=== PATIENT | male | born 1970 | race Caucasian/White ===

== ENCOUNTER 2021-11-05 22:19 | Emergency (ER) | payer MEDICAID, SELFPAY ==
--- NOTE | 2021-11-05 22:36 | CTR_ITS ---
PROCEDURE INFORMATION: Exam: CT Lumbar Spine Without Contrast Exam date and time: 11/05/2021 11:43 PM Age: 51 years old Clinical indication: Patient HX: C/O L sided weakness w radiculopathy; Additional info: L radicular pain TECHNIQUE: Imaging protocol: Computed tomography images of the lumbar spine without contrast. Radiation optimization: All CT scans at this facility use at least one of these dose optimization techniques: automated exposure control; mA and/or kV adjustment per patient size (includes targeted exams where dose is matched to clinical indication); or iterative reconstruction. COMPARISON: No relevant prior studies available. RADIATION DOSE METRICS: Total DLP (mGy-cm): 2361.09 FINDINGS: Vertebrae: Spinal alignment is normal. Vertebral body height is maintained. Facet joints are unremarkable. No acute fracture. Discs/Spinal canal/Neural foramina: There is disc space narrowing at L4-L5 and L5-S1. Minimal generalized disc bulges. No disc herniation is visible. Mild bilateral ligamentous hypertrophy at multiple levels. There is mild spinal stenosis at L2-L3, L3-L4 and L4-L5. Other bones/joints: The visible portion of the pelvis and sacrum is intact. Kidneys and ureters: There are left renal cysts, the largest of which is partially imaged. Soft tissues: Paraspinal soft tissues are unremarkable. CT/CT lumbar spine wo con* [id number] IMPRESSION: 1. No acute findings. 2. Mild multilevel degenerative spinal stenosis. COMMENTS: Consistent with the [employer]'s Incidental Findings Committee white paper (J Am Marilyn Radiol 2018): Any incidental renal lesion less than 1 cm or classified as too small to characterize, or any incidental cystic renal lesion characterized as simple-appearing, is likely benign. No follow-up imaging is recommended for these lesions per consensus recommendations based on imaging criteria.
--- NOTE | 2021-11-05 22:36 | CTR_ITS ---
PROCEDURE INFORMATION: Exam: CT Cervical Spine Without Contrast Exam date and time: 11/05/2021 11:38 PM Age: 51 years old Clinical indication: Patient HX: C/O L sided weakness/numbness; Additional info: L side paresthesia TECHNIQUE: Imaging protocol: Computed tomography images of the cervical spine without contrast. Radiation optimization: All CT scans at this facility use at least one of these dose optimization techniques: automated exposure control; mA and/or kV adjustment per patient size (includes targeted exams where dose is matched to clinical indication); or iterative reconstruction. COMPARISON: CT head wo con* [id number] 11/05/2021 11:35 PM RADIATION DOSE METRICS: Total DLP (mGy-cm): 727 FINDINGS: Vertebrae: No acute fracture. Normal alignment. C2-C3: No significant disc protrusion. No severe spinal canal stenosis. No significant neural foraminal narrowing. C3-C4: No significant disc protrusion. No severe spinal canal stenosis. No significant neural foraminal narrowing. C4-C5: No significant disc protrusion. No severe spinal canal stenosis. No significant neural foraminal narrowing. C5-C6: No significant disc protrusion. No severe spinal canal stenosis. No significant neural foraminal narrowing. C6-C7: No significant disc protrusion. No severe spinal canal stenosis. No significant neural foraminal narrowing. C7-T1: No significant disc protrusion. No severe spinal canal stenosis. No significant neural foraminal narrowing. Soft tissues: Unremarkable. Lungs: Lung apices are normal. CT/CT cervical spin wo con* [id number] IMPRESSION: No acute findings.
--- NOTE | 2021-11-05 22:36 | CTR_ITS ---
PROCEDURE INFORMATION: Exam: CT Head Without Contrast Exam date and time: 11/05/2021 11:35 PM Age: 51 years old Clinical indication: Weakness, extremity; Left; Patient HX: C/O L sided weakness; Additional info: Left sided paresthesia TECHNIQUE: Imaging protocol: Computed tomography of the head without contrast. Radiation optimization: All CT scans at this facility use at least one of these dose optimization techniques: automated exposure control; mA and/or kV adjustment per patient size (includes targeted exams where dose is matched to clinical indication); or iterative reconstruction. COMPARISON: No relevant prior studies available. RADIATION DOSE METRICS: Total DLP (mGy-cm): 1043.87 FINDINGS: Brain: Normal. No hemorrhage. Unremarkable white matter. No mass effect. Cerebral ventricles: No ventriculomegaly. Paranasal sinuses: Visualized sinuses are unremarkable. No fluid levels. Mastoid air cells: Visualized mastoid air cells are well aerated. Bones/joints: Unremarkable. No acute fracture. Soft tissues: Unremarkable. CT/CT head wo con* [id number] IMPRESSION: No acute intracranial abnormality.
--- NOTE | 2021-11-05 22:36 | CTR_ITS ---
PROCEDURE INFORMATION: Exam: CT Angiography Head With Contrast, Arteriography Exam date and time: 11/05/2021 11:49 PM Age: 51 years old Clinical indication: Patient HX: C/O L sided weakness/numbness; Additional info: Left side paresthesia TECHNIQUE: Imaging protocol: Computed tomography angiography of the head with contrast. Exam focused on the arteries. 3D rendering (Not supervised by radiologist): MIP and/or 3D reconstructed images were created by the technologist. Radiation optimization: All CT scans at this facility use at least one of these dose optimization techniques: automated exposure control; mA and/or kV adjustment per patient size (includes targeted exams where dose is matched to clinical indication); or iterative reconstruction. Contrast material: OMNI 350; Contrast volume: 95 ml; Contrast route: INTRAVENOUS (IV); COMPARISON: 1. CT head wo con* [id number] 11/05/2021 11:[address] cervical spin wo con* [id number] 11/05/2021 11:38 PM RADIATION DOSE METRICS: Total DLP (mGy-cm): 2155.53 FINDINGS: ANTERIOR CIRCULATION: Right internal carotid artery: Unremarkable. Intracranial segment is patent with no significant stenosis. No aneurysm. Right middle cerebral artery: Unremarkable. No occlusion or significant stenosis. No aneurysm. Right anterior cerebral artery: Unremarkable. No occlusion or significant stenosis. No aneurysm. Left internal carotid artery: Unremarkable. Intracranial segment is patent with no significant stenosis. No aneurysm. Left middle cerebral artery: Unremarkable. No occlusion or significant stenosis. No aneurysm. Left anterior cerebral artery: Unremarkable. No occlusion or significant stenosis. No aneurysm. POSTERIOR CIRCULATION: Right vertebral artery: Unremarkable. No occlusion or significant stenosis. No aneurysm. Left vertebral artery: Unremarkable. No occlusion or significant stenosis. No aneurysm. Basilar artery: Unremarkable. No occlusion or significant stenosis. No aneurysm. Right posterior cerebral artery: Unremarkable. No occlusion or significant stenosis. No aneurysm. Left posterior cerebral artery: Unremarkable. No occlusion or significant stenosis. No aneurysm. Brain: No definite mass, mass effect, or midline shift. Cerebral ventricles: No ventriculomegaly. Bones/joints: Unremarkable. No acute fracture. Soft tissues: Unremarkable. PROCEDURE INFORMATION: Exam: CT Angiography Neck With Contrast Exam date and time: 11/05/2021 11:49 PM Age: 51 years old Clinical indication: Patient HX: C/O L sided weakness/numbness; Additional info: Left side paresthesia TECHNIQUE: Imaging protocol: Computed tomography angiography of the neck with contrast. 3D rendering (Not supervised by radiologist): MIP and/or 3D reconstructed images were created by the technologist. Radiation optimization: All CT scans at this facility use at least one of these dose optimization techniques: automated exposure control; mA and/or kV adjustment per patient size (includes targeted exams where dose is matched to clinical indication); or iterative reconstruction. Contrast material: OMNI 350; Contrast volume: 95 ml; Contrast route: INTRAVENOUS (IV); COMPARISON: 1. CT head wo con* [id number] 11/05/2021 11:[address] cervical spin wo con* [id number] 11/05/2021 11:38 PM RADIATION DOSE METRICS: Total DLP (mGy-cm): 2155.53 FINDINGS: Right common carotid artery: No stenosis. No dissection or occlusion. Right internal carotid artery: Small volume plaque proximal right ICA. Mild stenosis. Right external carotid artery: No occlusion or stenosis of the origin. Left common carotid artery: No stenosis. No dissection or occlusion. Left internal carotid artery: Small volume plaque proximal left ICA. Minimal stenosis. Left external carotid artery: No occlusion or stenosis of the origin. Right vertebral artery: No stenosis. No dissection or occlusion. Left vertebral artery: No stenosis. No dissection or occlusion. Thyroid: Small heterogeneous left thyroid nodule measures about 1.5 cm greatest diameter. Soft tissues: Normal. No significant soft tissue swelling. Bones/joints: No acute fracture. CT/CT angio headneck* [id number] IMPRESSION: No large vessel stenosis or occlusion. IMPRESSION: Less than 50% carotid artery stenosis. COMMENTS: Consistent with the [employer]'s Incidental Findings Committee white paper (J Am Marilyn Radiol 2015): In patients aged 35 years and older with an incidental thyroid nodule equal to or greater than 1.[address], MRI or extrathyroidal US, further evaluation with dedicated thyroid US is recommended for patients with normal life expectancy and without comorbidities. For smaller nodules without suspicious features, no further evaluation or follow up is recommended. REFERENCES: NASCET CRITERIA. The degree of internal carotid artery stenosis is based on NASCET criteria. Normal is no stenosis. Mild is less than 50% stenosis. Moderate is 50-69% stenosis. Severe is 70% to 99% stenosis. Total occlusion is no detectable patent lumen.
[2021-11-05 22:38] VITALS: BP 172/117; PULSE 79; RESP 15; O2SAT 94; BMI 35.2
--- NOTE | 2021-11-05 22:38 | XRR_ITS ---
PROCEDURE INFORMATION: Exam: XR Chest Exam date and time: 11/06/2021 12:04 AM Age: 51 years old Clinical indication: Other: Weakness TECHNIQUE: Imaging protocol: XR of the chest. Views: 1 view. COMPARISON: CT cervical spin wo con* [id number] 11/05/2021 11:38 PM FINDINGS: Lungs: There is minimal ill-defined opacity in the lung bases bilaterally. No focal consolidation. Pleural spaces: There is no pleural effusion or pneumothorax. Heart/Mediastinum: Cardiomediastinal contours are unremarkable. Bones/joints: Bones are unremarkable. XR/XR chest 1V portable [id number] IMPRESSION: Minimal opacity in the lung bases. Probable subsegmental atelectasis.
--- NOTE | 2021-11-05 22:39 | ECG_ITS ---
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 Measurements Intervals [place] Rate: 73 P: 71 NH: 176 QRS: 23 QRSD: 103 T: 61 QT: 365 QTc: 404 Interpretive Statements SINUS RHYTHM No previous ECG available for comparison Electronically Signed On 11-06-2021 9:00:12 CDT by Lawson Pelaez M.D. [email or web address]
--- NOTE | 2021-11-05 22:42 | ED_ITS ---
HPI - Neuro Symptoms/Deficit General: Chief Complaint: Neuro Symptoms/Deficit Stated Complaint: can't feel left side Time Seen by Provider: 11/05/21 22:26 Source: patient History of Present Illness: 51-year-old male who 1.5 to 2 hours prior to arrival began to have a shooting pain up his back into the back of his head. He states that his left arm feels tingly and numb, as well as his left leg. He has some facial numbness as well. He denies significant headache currently. He denies neck pain. He does still have some back pain, and states that his belly hurts. He denies fever vomiting. He denies overt chest pain. He is a difficult historian, and will not answer some questions. Onset (ago): minute(s) (90-120) Location: left face, left arm and left leg History of same: No Severity: moderate Quality: numb and tingling Relieving factors: none Exacerbating factors: none Context: gradual onset On Anticoagulants: No Associated symptoms: Reports chest pain, nausea and weakness; Deny diaphoresis, fevers/chills, headache(s), short of breath or vomiting Review of Systems Const: Denies: fever(s) or diaphoresis Eyes: Denies: change in vision or blurry vision ENMT: Denies: throat pain Card: Reports: chest pain Resp: Denies: dyspnea, productive cough or non-productive cough GI: Reports: abdominal pain (diffuse) and nausea; Denies: vomiting Musc: Reports: back pain (lumbar); Denies: neck pain Neuro: Denies: headache(s) NIH stroke score NIHSS: Level Of Consciousness - 1a: 0 Level Of Consciousness Questions - 1b: Both Correct Level Of Consciousness Commands - 1c: Both Correct Best Gaze - 2: Normal Visual Clemons - 3: No Visual Loss Facial Palsy - 4: Normal Motor Arm Right - 5: No Drift Motor Arm Left - 5: No Drift Motor Leg Right - 6: No Drift Motor Leg Left - 6: No Drift Limb Ataxia - 7: Absent Sensory - 8: Mild To Moderate Loss Best Language - 9: No Aphasia Dysarthia - 10: Normal Extinction And Inattention - 11: 0 Score: Total Score: 1 Physical Exam Const: COMMON NORMALS: alert GENERAL APPEARANCE: anxious; not frail appearing NUTRITIONAL APPEARANCE: overweight OTHER: Incomplete cooperation HENMT: COMMON NORMALS: normocephalic, atraumatic and Normal external nose present HEAD & SCALP: normocephalic and atraumatic FACE & SINUS: normal facial exam NOSE: Normal external nose present and Normal nares present Eye: COMMON NORMALS: Equal, round and reactive pupils present and EOMs intact bilaterally VISUAL ACUITY: Yes acuity normal VISUAL CLEMONS: No peripheral vision loss PUPIL: Yes Equal, round and reactive pupils present Neck/C-Spine: COMMON NORMALS: full ROM CERVICAL SPINE: No Cervical spine tenderness Chest: COMMONS NORMALS: normal inspection of the chest Resp: COMMON NORMALS: normal respiratory effort, No use of accessory muscles and clear to auscultation bilaterally AUSCULTATION: clear to auscultation bilaterally Cardio: COMMON NORMALS: regular rate and regular rhythm RATE: regular rate RHYTHM: regular rhythm GI: COMMON NORMALS: Normal to inspection, nondistended, normoactive bowel sounds present Neuro: ADALID COMA SCALE: document GCS findings [place] coma scale eye opening: Spontaneous [place] coma scale verbal response: Orientated [place] coma scale motor response: Obey commands Adalid coma scale total score: 15 SENSORIUM/ORIENTATION: Yes alert CRANIAL NERVES: Yes CN normal except as noted COORDINATION/BALANCE: [id number]-vi-[id number] test normal and guna-rx-jwwn test normal SPEECH: speech normal GAIT: Yes Normal gait present SENSORY EXAM: Yes extremities (Subjective mild loss to upper and lower extremity) MOTOR EXAM: Pronator motor function not present and Tremors during motor activity present (Left side) resting tremor COORDINATION: rnwpqo-[id number] test normal and hdbr-yg-kbnw test normal Psych: COMMON NORMALS: mental status grossly normal ATTITUDE: Yes Withdrawn affect present and Yes uncooperative (At times) Course Vital Signs: Vital signs: Vital Signs Temperature 98 F 11/06/21 00:58 Pulse Rate 66 11/06/21 03:02 Respiratory Rate 20 H 11/06/21 02:06 Blood Pressure 131/81 11/06/21 03:02 Pulse Oximetry 97 11/06/21 03:02 MDM - Neuro Symptoms/Deficit Medical Decision Making Head CT is negative. CTA of the head and neck shows less than 50% carotid stenosis, and is otherwise normal. CT of the cervical spine, done as a potential cause of paresthesias to the left upper and lower extremity shows no significant spinal stenosis. Lumbar CT shows no significant spinal stenosis. CBC is normal. BMP is normal. Troponin was 6 and stayed 6 at 2 hours. EKG shows a normal sinus rhythm with a rate of 60 normal axis, intervals, and no ST changes.Chest x-ray shows minimal subsegmental atelectasis in the bases bilaterally. No hematuria. Ammonia level 44. No cause of paresthesia found. NIH is 1, for mild subjective decreased sensation over extremities. His blood pressure was quite high on presentation, and is now 131/81. His symptoms are improved he did seem to have increased pain with a straight leg raise test to the lumbar spine, but again there is no significant spinal stenosis by CT. Lab Data : 11/05/21 23:03 11/05/21 23:03 Radiology Impressions Cervical Spine CT 11/05/21 22:36 IMPRESSION: No acute findings. Head CT 11/05/21 22:36 IMPRESSION: No acute intracranial abnormality. Head/Neck CTA 11/05/21 22:36 IMPRESSION: No large vessel stenosis or occlusion. IMPRESSION: Less than 50% carotid artery stenosis. COMMENTS: Consistent with the [employer]'s Incidental Findings Committee white paper (J Am Marilyn Radiol 2015): In patients aged 35 years and older with an incidental thyroid nodule equal to or greater than 1.[address], MRI or extrathyroidal US, further evaluation with dedicated thyroid US is recommended for patients with normal life expectancy and without comorbidities. For smaller nodules without suspicious features, no further evaluation or follow up is recommended. REFERENCES: NASCET CRITERIA. The degree of internal carotid artery stenosis is based on NASCET criteria. Normal is no stenosis. Mild is less than 50% stenosis. Moderate is 50-69% stenosis. Severe is 70% to 99% stenosis. Total occlusion is no detectable patent lumen. Lumbar Spine CT 11/05/21 22:36 IMPRESSION: 1. No acute findings. 2. Mild multilevel degenerative spinal stenosis. COMMENTS: Consistent with the [employer]'s Incidental Findings Committee white paper (J Am Marilyn Radiol 2018): Any incidental renal lesion less than 1 cm or classified as too small to characterize, or any incidental cystic renal lesion characterized as simple-appearing, is likely benign. No follow-up imaging is recommended for these lesions per consensus recommendations based on imaging criteria. Chest X-Ray 11/05/21 22:38 IMPRESSION: Minimal opacity in the lung bases. Probable subsegmental atelectasis. Laboratory Results WBC 6.3 10^3/uL (4.0-10.0) 11/05/21 23:03 RBC 4.71 10^6/uL (4.1-5.3) 11/05/21 23:03 Hgb 14.9 g/dL (11.7-16.6) 11/05/21 23:03 Hct 42.7 % (42.0-52.0) 11/05/21 23:03 MCV 90.7 fl (80-94) 11/05/21 23:03 MCH 31.6 pg (28.0-34.0) 11/05/21 23:03 MCHC 34.9 g/dL (30.0-36.0) 11/05/21 23:03 RDW 13.0 % (12.1-15.1) 11/05/21 23:03 Plt Count 340 10^3/cmm (130-400) 11/05/21 23:03 MPV 9.9 fL (7.4-10.4) 11/05/21 23:03 Neut % (Auto) 65.2 % 11/05/21 23:03 Lymph % (Auto) 24.8 % 11/05/21 23:03 [place] % (Auto) 7.0 % 11/05/21 23:03 Eos % (Auto) 2.4 % 11/05/21 23:03 Baso % (Auto) 0.3 % 11/05/21 23:03 Neut # (Auto) 4.12 10^3/uL (1.8-7.7) 11/05/21 23:03 Lymph # (Auto) 1.6 10^3/uL (0.8-4.8) 11/05/21 23:03 [place] # (Auto) 0.4 10^3/uL (0.2-0.9) 11/05/21 23:03 Eos # (Auto) 0.2 10^3/uL (0.0-0.8) 11/05/21 23:03 Baso # (Auto) 0.0 10^3/uL (0.0-0.1) 11/05/21 23:03 Nucleated RBC % (auto) 0 % 11/05/21 23:03 Nucleated RBCs # 0.0 /100WBC 11/05/21 23:03 PT 12.60 SECONDS (12.1-14.9) 11/05/21 23:23 INR 0.91 (0.8-1.2) 11/05/21 23:23 APTT 26.2 SECONDS (23.9-36.7) 11/05/21 23:23 Sodium 138 mmol/L (136-145) 11/05/21 23:03 Potassium 3.9 mmol/L (3.5-5.1) 11/05/21 23:03 Chloride 103 mmol/L (98-107) 11/05/21 23:03 Carbon Dioxide 24 mmol/L (22-29) 11/05/21 23:03 Anion Gap 14.9 (5-19) 11/05/21 23:03 BUN 10 mg/dL (6-20) 11/05/21 23:03 Creatinine 0.7 mg/dL (0.7-1.2) 11/05/21 23:03 GFR Calculation 118.4 mL/min (90-130) 11/05/21 23:03 Glucose 108 mg/dL (65-115) 11/05/21 23:03 POC Glucose 107 mg/dL (70-110) 11/05/21 23:25 Calculated Osmolality 286 mOsm/kg (285-295) 11/05/21 23:03 Calcium 9.5 mg/dL (8.5-10.5) 11/05/21 23:03 Total Bilirubin 0.3 mg/dL (0.15-1.2) 11/05/21 23:03 AST 26 U/L (0-40) 11/05/21 23:03 ALT 35 U/L (0-41) 11/05/21 23:03 Alkaline Phosphatase 62 IU/L (40-130) 11/05/21 23:03 Ammonia 44 umol/L (16-60) 11/06/21 00:10 Troponin T Baseline 6 ng/L (0-15) 11/05/21 23:03 Troponin T 120 Minute 6.00 ng/L (0-15) 11/06/21 01:06 Delta Troponin T Not Reportable 11/06/21 01:06 Total Protein 7.6 g/dL (6.6-8.7) 11/05/21 23:03 Albumin 4.3 g/dL (3.5-5.2) 11/05/21 23:03 Globulin 3.3 g/dL (1.3-4.6) 11/05/21 23:03 Urine Color Yellow (Yellow) 11/05/21 23:41 Urine Appearance Clear (CLEAR) 11/05/21 23:41 Urine pH 8 (5-7) H 11/05/21 23:41 Ur Specific [place] 1.010 (1.005-1.030) 11/05/21 23:41 Urine Protein Neg (Negative) 11/05/21 23:41 Urine Glucose (UA) Norm (Normal) 11/05/21 23:41 Urine Ketones Negative (Negative) 11/05/21 23:41 Urine Blood Neg (Negative) 11/05/21 23:41 Urine Nitrate Negative (Negative) 11/05/21 23:41 Urine Bilirubin Neg (Negative) 11/05/21 23:41 Prot Sulfosalicylic Acd Negative (Negative) 11/05/21 23:41 Urine Urobilinogen Norm mg/dL (Negative) 11/05/21 23:41 Ur Leukocyte Esterase Negative (Negative) 11/05/21 23:41 Urine Opiates Screen Negative ng/mL (Negative) 11/05/21 23:41 Ur Barbiturates Screen Negative ng/mL (Negative) 11/05/21 23:41 Ur Phencyclidine Scrn Negative ng/mL (Negative) 11/05/21 23:41 Ur Amphetamines Screen Negative ng/mL (Negative) 11/05/21 23:41 U Benzodiazepines Scrn Negative ng/mL (Negative) 11/05/21 23:41 Urine Cocaine Screen Negative ng/mL (Negative) 11/05/21 23:41 U Marijuana (THC) Screen Negative ng/mL (Negative) 11/05/21 23:41 Ethyl Alcohol < 10 mg/dL (0-10) 11/05/21 23:03 Discharge Plan Discharge Patient Disposition: Home Clinical Impression: Back pain, Abdominal pain, Paresthesia Condition: Stable Prescriptions: New hydrocodone-acetaminophen 5-325 mg tablet 1 tab PO Q8H PRN (Reason: pain) Qty: 7 0RF Discharge Orders: Discharge ED (Routine); Ordered 11/06/21 Ordered By: Sadi Clancy Referrals: Rupa Perry FNP [Staff Physician] - 1-3 days Patient Instructions: Paresthesia (ED), Abdominal Pain (ED), Opioid Safety Activity Restrictions/Additional Instructions: Return for fever greater than 100, worsening pain despite treatment, vomiting liquids or medications, language problems, worsening weakness, worsening numbness, or any other concerning symptoms. Coding Level of Care Code ED Fund Raiser for Chg Fwd Exam Comprehensive
[2021-11-05 23:10] LABS: Basophils % 0.3 %; Eosinophils # 0.2 10^3/uL (0.0-0.8); Eosinophils % 2.4 %; Hematocrit 42.7 % (42.0-52.0); Hemoglobin 14.9 g/dL (11.7-16.6); Lymphocytes # 1.6 10^3/uL (0.8-4.8); Lymphocytes % 24.8 %; Mean Corpuscular HGB Conc 34.9 g/dL (30.0-36.0); Mean Corpuscular Hemoglobin 31.6 pg (28.0-34.0); Mean Corpuscular Volume 90.7 fl (80-94); Mean Platelet Volume 9.9 fL (7.4-10.4); Monocytes # 0.4 10^3/uL (0.2-0.9); Neutrophils # 4.12 10^3/uL (1.8-7.7); Neutrophils % 65.2 %; Nucleated Red Blood Cells % 0 %; Platelet Count 340 10^3/cmm (130-400); Red Blood Count 4.71 10^6/uL (4.1-5.3); White Blood Count 6.3 10^3/uL (4.0-10.0)
[2021-11-05] MEDS: ondansetron 2 mg/ML SDV 2 mL 4 MG IVP (23:12)
[2021-11-05 23:13] VITALS: RESP 18
[2021-11-05] MEDS: morphine 4 mg/mL SDV 1 mL IVP (23:13)
[2021-11-05 23:19] VITALS: BP 154/103; PULSE 75; RESP 18; O2SAT 96
[2021-11-05 23:28] LABS: Glucose Point of Care 107 mg/dL (70-110)
[2021-11-05 23:31] LABS: Alanine Aminotransferase 35 U/L (0-41); Albumin Level 4.3 g/dL (3.5-5.2); Alkaline Phosphatase 62 IU/L (40-130); Anion Gap 14.9 (5-19); Aspartate Amino Transferase 26 U/L (0-40); Blood Urea Nitrogen 10 mg/dL (6-20); Calcium 9.5 mg/dL (8.5-10.5); Carbon Dioxide 24 mmol/L (22-29); Chloride 103 mmol/L (98-107); Globulin 3.3 g/dL (1.3-4.6); Glomerular Filtration Rate 118.4 mL/min (90-130); Glucose 108 mg/dL (65-115); Osmolality Calculated 286 mOsm/kg (285-295); Potassium 3.9 mmol/L (3.5-5.1); Sodium 138 mmol/L (136-145); Total Bilirubin 0.3 mg/dL (0.15-1.2); Total Protein 7.6 g/dL (6.6-8.7)
[2021-11-05 23:32] LABS: Troponin(5th) Baseline 6 ng/L (0-15)
[2021-11-05] MEDS: iohexol 350 mg/mL 100 mL Btl IV (23:51)
[2021-11-05 23:52] LABS: Alcohol Level < 10 mg/dL (0-10)
[2021-11-05 23:55] LABS: INR 0.91 (0.8-1.2); Partial Thromboplastin Time 26.2 SECONDS (23.9-36.7)
[2021-11-06] MEDS: LORazepam 2 mg/mL INJ 1 mL 1 MG IVP (00:28)
--- NOTE | 2021-11-06 00:39 | ECG_ITS ---
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 Measurements Intervals [place] Rate: 58 P: 68 MT: 171 QRS: 50 QRSD: 101 T: 60 QT: 407 QTc: 402 Interpretive Statements SINUS BRADYCARDIA Compared to ECG 11/05/2021 22:47:39 Sinus rhythm no longer present Electronically Signed On 11-06-2021 9:04:16 CDT by Lawson Pelaez M.D. [id number]
[2021-11-06 00:54] LABS: Ammonia 44 umol/L (16-60)
[2021-11-06 00:58] VITALS: PULSE 58; RESP 18; TEMP 36.6; O2SAT 95
[2021-11-06 01:09] VITALS: BP 118/85
[2021-11-06 01:16] LABS: Add Urine Microscopic? NO; Charge for UA Resulting for Rev
[2021-11-06 01:28] LABS: Amphetamines Screen Urine Negative (Negative); Barbiturates Screen Urine Negative (Negative); Benzodiazepines Screen Urine Negative (Negative); Cocaine Screen Urine Negative (Negative); Opiate Screen Urine Negative (Negative); PCP Screen Urine Negative (Negative); THC Screen Urine Negative (Negative)
[2021-11-06 01:40] LABS: Bilirubin Urine Neg (Negative); Blood Urine Neg (Negative); Glucose Urine UA Norm (Normal); Ketones Urine Negative (Negative); Leukocyte Esterase Urine Negative (Negative); Nitrate Urine Negative (Negative); Protein Urine Neg (Negative); Sulfosalicylic Acid Urine Negative (Negative); Urine Appearance Clear (CLEAR); Urine Color Yellow (Yellow); Urobilinogen Urine Norm (Negative); pH Urine 8 (5-7)
[2021-11-06 02:06] VITALS: RESP 20
[2021-11-06] MEDS: morphine 4 mg/mL SDV 1 mL IVP (02:06)
[2021-11-06 03:02] VITALS: BP 131/81; PULSE 66; O2SAT 97
== END 2021-11-06 03:21 | disposition home or self-care (01) ==
PROVIDERS: Emergency Provider Emergency Medicine
DX: R20.2 Paresthesia of skin (principal); M54.9 Dorsalgia, unspecified; R10.9 Unspecified abdominal pain; R03.0 Elevated blood-pressure reading, without diagnosis of hypertension
CPT/HCPCS: 36416; 70450; 70496; 70498; 71045; 72125; 72131; 80053; 80306; 80307; 81003; 82140; 82962; 84484; 85025; 85610; 85730; 93005; 96374; 96375; 96376; 99284; J2060; J2270; J2405; Q9967

== ENCOUNTER → 2022-10-23 17:00 | Outpatient (BNVA) | payer MEDICAID, SELFPAY | PROVIDERS: Visit Provider Nurse Practitioner | DX: S89.90XA Unspecified injury of unspecified lower leg, initial encounter (principal); X58.XXXA Exposure to other specified factors, initial encounter; M25.462 Effusion, left knee | CPT/HCPCS: 73562 ==

== ENCOUNTER 2022-11-03 13:38 | Emergency (ER) | payer MEDICAID, SELFPAY ==
[2022-11-03 14:03] VITALS: BP 171/114; PULSE 118; RESP 16; TEMP 36.9; O2SAT 98; BMI 30.1
--- NOTE | 2022-11-03 14:08 | XRR_ITS ---
PROCEDURE INFORMATION: Exam: XR Right Hand Exam date and time: 11/03/2022 2:16 PM Age: 52 years old Clinical indication: Injury or trauma; Other: Crush injury; Crushing; Right; Ring finger TECHNIQUE: Imaging protocol: Radiologic exam of the right hand. Views: 1 or 2 views. COMPARISON: No relevant prior studies available. FINDINGS: Bones/joints: There is a comminuted fracture involving the distal lateral margin of the 4th distal phalangeal tuft. There is amputation of the tip of the 3rd finger. Alignment is normal. There is a minimally displaced fracture of the distal 1st phalangeal tuft laterally. Soft tissues: There is soft tissue laceration and small (1-2 mm) radiodense structures in the soft tissues just deep to the nail bed in the 4th finger. Possible foreign bodies or bone fragments. XR/XR hand RT 2V [id number] IMPRESSION: 1. Comminuted displaced fracture of the distal 4th phalangeal tuft and adjacent soft tissue laceration with 1-2 mm radiodense foreign bodies or bone fragments deep to the nail bed. 2. Minimally displaced fracture of the distal 1st phalangeal tuft. Chronicity is uncertain.
[2022-11-03] MEDS: tetanus-dipt-pertussis 0.5 mL SDV IM (14:17)
--- NOTE | 2022-11-03 15:03 | ED_ITS ---
Documented by User: TONY Das 11/03/22 15:28 HPI - Wound/Laceration General: Chief Complaint: Wound/Laceration Stated Complaint: finger injury Time Seen by Provider: 11/03/22 13:40 History of Present Illness: Patient is a [id number] 52-year-old man that presents to the emergency department the days after a 1300 pound horse stepped on the end of the fourth digit of the right hand. He sustained multiple avulsion type lacerations of the tip of the finger, and fractured his nailbed. For the last 2 to 3 days patient has been soaking the finger in iodine and hydrogen peroxide. There is a unknown object that is protruding from the distal aspect of the finger. It appears to be foreign but patient states it is attached, possibly his nailbed. Necrotic tissue present Patient does not recall when his last tetanus was Medical history includes hypertension. Associated symptoms: Denies chills, fever(s), nausea or vomiting Review of Systems General: Reports: 10 or more systems reviewed and unremarkable except in HPI and below Const: Denies: fever(s), chills, change in appetite, change in weight, fatigue or malaise Eyes: Denies: change in vision, eye discomfort, eye discharge or eye redness ENMT: Denies: throat pain, enlarged tonsils, odynophagia, hoarseness, ear or mastoid pain, ear discharge, change in hearing, tinnitus, nasal discharge, nasal congestion, post nasal drip or sinus pain Card: Denies: chest pain, palpitations, irregular heart rhythm, edema, dyspnea on exertion, orthopnea or leg pain with exertion Resp: Denies: dyspnea, productive cough, non-productive cough, wheezing, stridor or chest congestion GI: Denies: abdominal pain, nausea, vomiting, dysphagia, diarrhea, constipation, bloating, GI cramping or hematochezia : Denies: flank pain, dysuria, urinary frequency, urinary urgency, urinary hesitancy, oliguria or hematuria Musc: Denies: neck pain, back pain, extremity pain, joint pain, joint swelling, joint redness, joint warmth or muscle weakness Skin/Breast: Denies: rash, pruritus, erythema, photosensitivity or new lesions Neuro: Denies: headache(s), numbness in extremities, weakness in extremities, sensory changes, lack of coordination, difficulty walking, frequent falls, dizziness, confusion, Slurred speech present, difficulty communicating thoughts, seizure-like activity or involuntary movements Endo: Denies: polyuria, polydipsia or tired all the time Maged/Lymph: Denies: easy bruising or easy bleeding Physical Exam Const: COMMON NORMALS: no acute distress, patient oriented x3 and alert GENERAL APPEARANCE: cooperative ORIENTATION/CONSCIOUSNESS: Yes awake, Yes oriented to person, Yes oriented to place and Yes oriented to time Neck/C-Spine: COMMON NORMALS: full ROM GENERAL: Yes normal visual inspection Lymph: LYMPHATIC: no lymphadenopathy noted Chest: COMMONS NORMALS: normal inspection of the chest Breast/axilla inspection: Yes no chest deformity, asymmetry, normal contours, no nodules, masses, tenderness Resp: COMMON NORMALS: normal respiratory effort, No retractions, No use of accessory muscles and clear to auscultation bilaterally EFFORT & INSPECTION: Yes able to speak in complete sentences and Yes symmetric chest movement AUSCULTATION: clear to auscultation bilaterally Cardio: COMMON NORMALS: regular rate, regular rhythm and Peripheral pulses 2+ throughout RATE: regular rate RHYTHM: regular rhythm PERIPHERAL PULSES: Peripheral pulses 2+ throughout GI: COMMON NORMALS: Normal to inspection, nondistended, normoactive bowel soun ds present, Soft to palpation, non-tender and No hepatosplenomegaly present INSPECTION: Yes normal to inspection AUSCULTATION: Yes normoactive bowel sounds PALPATION: Yes Soft to palpation and Yes No hepatosplenomegaly present RECTAL EXAM: Yes deferred Extremity: COMMON NORMALS: negative for normal to inspection NARRATIVE EXTREMITY EXAM: Patient is right-hand dominant Has sustained a crush injury to the distal aspect of the fourth digit of the right hand He has a nailbed injury, open fracture, macerated and necrotic tissue. Is unclear if the patient has a foreign body or if this is his own soft tissue that is embedded in the wound. It is necrotic Patient is otherwise neurovascular intact. He has full flexion extension of the digit. Cap refill proximal of the wound is intact. GENERAL: Yes normal exam except as noted RIGHT UPPER EXTREMITY: Yes hand & digits Right hand and digits: Yes inspection (Macerated tissue to the distal aspect of the right fourth digit. ) Neuro: COMMON NORMALS: patient oriented x3 SENSORIUM/ORIENTATION: Yes alert, Yes oriented to person, Yes oriented to place and Yes oriented to time CRANIAL NERVES: Yes CN normal except as noted Psych: COMMON NORMALS: mental status grossly normal, Normal thought process present, cooperative, activity/motor behavior normal, denies homicidal ideation and denies suicidal ideation THOUGHT PROCESS: Normal thought process present Skin: COMMON NORMALS: no rashes or lesions noted, no wounds and turgor normal GENERAL SKIN EXAM: no rashes or lesions noted and turgor normal Course Vital Signs: Vital signs: Vital Signs Temperature 98.5 F 11/03/22 14:03 Pulse Rate 118 H 11/03/22 14:03 Respiratory Rate 16 11/03/22 14:03 Blood Pressure 171/114 11/03/22 14:03 Pulse Oximetry 98 11/03/22 14:03 Oxygen Delivery Me thod 11/03/22 14:03 MDM - Wound/Laceration Medical Decision Making Patient was evaluated in the emergency department 3 days after sustaining an injury to his dominant hand. At underwent XR imaging of the hand which reveals a comminuted tuft fracture of the fourth digit of the right hand. The tissue is macerated and necrotic. It has multiple lacerations. I did speak with Dr. Butterfield at 1500. This is not an injury that would be kept here. She is deferring to hand surgery. Patient is elected [facility] in [place]. Dr Cordero recommendation are keflex for coverage, xeroform to distal finger and a finger splint Patient will need to follow up this week with Dr Cordero. Contact information provided Lab Data Radiology Impressions Hand X-Ray 11/03/22 14:08 IMPRESSION: 1. Comminuted displaced fracture of the distal 4th phalangeal tuft and adjacent soft tissue laceration with 1-2 mm radiodense foreign bodies or bone fragments deep to the nail bed. 2. Minimally displaced fracture of the distal 1st phalangeal tuft. Chronicity is uncertain. Discharge Plan Discharge Patient Disposition: Home Clinical Impression: Avulsion of skin, Open fracture, Finger fracture Condition: Stable Prescriptions: New cephalexin 500 mg capsule 500 mg PO Q6H 7 Days Qty: 28 0RF No Action lisinopril 10 mg tablet 10 mg PO DAILY meloxicam 15 mg tablet 15 mg PO DAILY Discharge Orders: Discharge ED (Routine); Ordered 11/03/22 Or[facility] By[facility] Referrals: Ottoniel Cordero [Other] - 1-3 days (Call the office Saturday to set up an appointment.) Ivanna Vargas EQUINE SCIENCE INSTRUCTOR [Primary Care Provider] - Discharge Diet: Advance as tolerated Discharge Activity: Resume usual activity Patient Instructions: Cephalexin (By mouth) (Bio-Cef, Keflex), Diphtheria/Tetanus/Acellular Pertussis/Polio Vaccine (By injection), Laceration (ED), Finger Fracture (ED), Pain Management Activity Restrictions/Additional Instructions: Keep the dressing and splint that was applied in the emergency department intact. Do not soak the tissue in any liquid Take the antibiotics as prescribed Remain nonweightbearing with the right hand Means no lifting pushing or pulling objects Coding Level of Care Code ED Personnel Technician for Chg Fwd Documented by User: Erich Davalos DO 11/03/22 16:35 HPI - Wound/Laceration General: Chief Complaint: Wound/Laceration Stated Complaint: finger injury Time Seen by Provider: 11/03/22 13:40 Course Vital Signs: Vital signs: Vital Signs Temperature 98.5 F 11/03/22 14:03 Pulse Rate 118 H 11/03/22 14:03 Respiratory Rate 16 11/03/22 14:03 Blood Pressure 171/114 11/03/22 14:03 Pulse Oximetry 98 11/03/22 14:03 Oxygen Delivery Me thod 11/03/22 14:03 MDM - Wound/Laceration Medical Decision Making Patient was evaluated in the emergency department 3 days after sustaining an injury to his dominant hand. At underwent XR imaging of the hand which reveals a comminuted tuft fracture of the fourth digit of the right hand. The tissue is macerated and necrotic. It has multiple lacerations. I did speak with Dr. Butterfield at 1500. This is not an injury that would be kept here. She is deferring to hand surgery. Patient is elected [facility] in [place]. Dr Cordero recommendation are keflex for coverage, xeroform to distal finger and a finger splint Patient will need to follow up this week with Dr Cordero. Contact information provided Chart reviewed and patient discussed with midlevel. Agree with assessment and plan. Medical Records I reviewed the patient's medical records. Lab Data I reviewed the patient's lab results. Radiology Impressions Hand X-Ray 11/03/22 14:08 IMPRESSION: 1. Comminuted displaced fracture of the distal 4th phalangeal tuft and adjacent soft tissue laceration with 1-2 mm radiodense foreign bodies or bone fragments deep to the nail bed. 2. Minimally displaced fracture of the distal 1st phalangeal tuft. Chronicity is uncertain. Discharge Plan Discharge Patient Disposition: Home Clinical Impression: Avulsion of skin, Open fracture, Finger fracture Condition: Stable Prescriptions: New cephalexin 500 mg capsule 500 mg PO Q6H 7 Days Qty: 28 0RF No Action lisinopril 10 mg tablet 10 mg PO DAILY meloxicam 15 mg tablet 15 mg PO DAILY Discharge Orders: Discharge ED (Routine); Ordered 11/03/22 Ordered By: Rosalie Amaya Referrals: Ottoniel Cordero [Other] - 1-3 days (Call the office Saturday to set up an appointment.) Ivanna Vargas NP [Primary Care Provider] - Discharge Diet: Advance as tolerated Discharge Activity: Resume usual activity Patient Instructions: Cephalexin (By mouth) (Bio-Cef, Keflex), Diphtheria/Tetanus/Acellular Pertussis/Polio Vaccine (By injection), Laceration (ED), Finger Fracture (ED), Pain Management Activity Restrictions/Additional Instructions: Keep the dressing and splint that was applied in the emergency department intact. Do not soak the tissue in any liquid Take the antibiotics as prescribed Remain nonweightbearing with the right hand Means no lifting pushing or pulling objects Coding Level of Care Code ED Personnel Technician for [facility] [place]
[2022-11-03] MEDS: cephALEXin 500 mg Capsule PO (15:28)
== END 2022-11-03 15:53 | disposition home or self-care (01) ==
PROVIDERS: Emergency Provider Nurse Practitioner; PCP Nurse Practitioner
DX: S62.634B Displaced fracture of distal phalanx of right ring finger, initial encounter for open fracture (principal); W55.12XA Struck by horse, initial encounter
CPT/HCPCS: 73120; 90471; 90715; 99283; A6222

== ENCOUNTER → 2022-12-25 14:41 | Outpatient (BNVA) | payer MEDICAID, SELFPAY | PROVIDERS: PCP Family Medicine; Visit Provider Family Medicine | DX: M25.511 Pain in right shoulder (principal) | CPT/HCPCS: 73030 ==

== ENCOUNTER → 2023-05-14 12:15 | Outpatient (BNVA) | payer MEDICAID, SELFPAY | PROVIDERS: PCP Family Medicine; Visit Provider Family Medicine | DX: J32.9 Chronic sinusitis, unspecified (principal); I10 Essential (primary) hypertension; K40.30 Unilateral inguinal hernia, with obstruction, without gangrene, not specified as recurrent; M25.511 Pain in right shoulder; G89.29 Other chronic pain; M19.91 Primary osteoarthritis, unspecified site; J30.2 Other seasonal allergic rhinitis; J32.0 Chronic maxillary sinusitis; L98.9 Disorder of the skin and subcutaneous tissue, unspecified | CPT/HCPCS: 80053; 80061 ==

== ENCOUNTER → 2023-06-03 13:41 | Outpatient (BNVA) | payer MEDICAID, SELFPAY | PROVIDERS: PCP Family Medicine; Visit Provider Family Medicine | DX: L98.9 Disorder of the skin and subcutaneous tissue, unspecified (principal) | CPT/HCPCS: 88304 ==

== ENCOUNTER → 2023-07-25 10:35 | Outpatient (BNVA) | payer MEDICAID, SELFPAY | PROVIDERS: PCP Family Medicine; Visit Provider Family Medicine | DX: Z72.51 High risk heterosexual behavior (principal); Z11.3 Encounter for screening for infections with a predominantly sexual mode of transmission | CPT/HCPCS: 87491; 87591; 87806 ==

== ENCOUNTER → 2023-08-21 13:26 | Outpatient (BNVA) | payer MEDICAID, SELFPAY | PROVIDERS: PCP Family Medicine; Visit Provider Specialist | DX: M12.811 Other specific arthropathies, not elsewhere classified, right shoulder | CPT/HCPCS: 73030 ==

== ENCOUNTER 2023-09-23 09:27 | Outpatient (CLI) | payer MEDICAID, SELFPAY ==
--- NOTE | 2023-09-23 09:30 | MR_ITS ---
WS: [id number] MRI RIGHT SHOULDER NONCONTRAST TECHNIQUE: Sagittal T2, coronal T1, T2 and proton density imaging. Axial gradient PDE imaging. CLINICAL INFORMATION: right shoulder pain COMPARISON: None. FINDINGS: Advanced degenerative arthritis AC joint with synovial thickening and subchondral cystic change. Asso ciated fluid at the AC joint with loss of the subacromial space. Subacromial spurring. This is advanc ed for a patient this age. Chronic thinning of the supraspinatus with a chronic high-grade tear. Small amount of residual intact supraspinatus fibers distally. Chronic high-grade tear of the infraspinatus with chronic thinning. C hronic atrophy of the supra and infraspinatus muscle bellies. Teres minor appears intact. Chronic tear of the subscapularis tendon distally with chronic thinning. Medial dislocation of the biceps tendon from the bicipital groove with tendinopathy. Intra-articular biceps tendon appears grossly intact. Degenerative fraying of the glenoid labrum. Advanced degenerative arthritis of the glenohumeral artic ulation. Small joint effusion. IMPRESSION: 1. Advanced degenerative arthritis AC joint with fluid and edema. Near complete loss of the subacrom ial space advanced for patient this age. 2. Chronic high-grade partial tears with chronic thinning of the supra and infraspinatus tendons dis tally with a small amount of residual intact fibers. 3. Chronic tear with chronic thinning of the subscapularis tendon. Medial dislocation of the biceps tendon from the bicipital groove. 4. Advanced degenerative arthritis of the glenohumeral articulation with degenerative fraying of the glenoid labrum. 5. Tiny joint effusion.
== END 2023-09-23 09:28 | disposition home or self-care (01) ==
LOC: RAD 09:27
PROVIDERS: PCP Family Medicine; Visit Provider Specialist
DX: M25.511 Pain in right shoulder (principal); G89.29 Other chronic pain
CPT/HCPCS: 73221

== ENCOUNTER → 2024-05-11 13:41 | Outpatient (BNVA) | payer MEDICAID, SELFPAY | PROVIDERS: PCP Family Medicine; Visit Provider Family Medicine | DX: M12.811 Other specific arthropathies, not elsewhere classified, right shoulder (principal); I10 Essential (primary) hypertension; G89.29 Other chronic pain; M19.91 Primary osteoarthritis, unspecified site; Z11.3 Encounter for screening for infections with a predominantly sexual mode of transmission | CPT/HCPCS: 80053; 80061; 85025 ==

== ENCOUNTER → 2024-08-14 09:03 | Outpatient (BNVA) | payer MEDICAID, SELFPAY | PROVIDERS: PCP Family Medicine; Visit Provider Specialist | DX: M75.101 Unspecified rotator cuff tear or rupture of right shoulder, not specified as traumatic (principal); M19.011 Primary osteoarthritis, right shoulder; Z71.89 Other specified counseling | CPT/HCPCS: 73030 ==

== ENCOUNTER 2024-10-17 04:15 | Emergency (ER) | payer MEDICAID, SELFPAY ==
[2024-10-17 04:37] VITALS: BP 162/100; PULSE 72; RESP 20; TEMP 36.6; O2SAT 95
[2024-10-17] MEDS: fluorescein 1 mg Strip EYE-BOTH (04:50)
[2024-10-17] MEDS: tetracaine 0.5% Op Soln 4 mL Btl 1 DROP EYE-BOTH (04:50)
--- NOTE | 2024-10-17 04:52 | ED_ITS ---
HPI - Eye Problem General: Chief complaint: Eye Problems Stated complaint: dirt/ something in eyes Time Seen by Provider: 10/17/24 04:44 History of Present Illness: Patient presents to the ER with thinking he has something in both eyes. Patient was up underneath his truck last night working when he moved some wires and big water dust and dirt come down in his face. He said immediately thought he had something in his develop his left eye started bothering him now both eyes are bothering him. He has been washing the mouth all night long. Lubricating drops in but no relief. Related Data Previous Rx's ?Medication ?Instructions ?Recorded fluticasone propionate 50 1 spray intranasal BID #16 g devendra 04/09/24 mcg/actuation nasal spray,suspension (Flonase Allergy Relief) amlodipine 5 mg tablet (Norvasc) 5 mg PO .qnightly #90 tabs 05/11/24 celecoxib 100 mg capsule (Celebrex) 100 mg PO BID #180 caps 05/11/24 hydrochlorothiazide 25 mg tablet 25 mg PO QAM #90 tabs 05/11/24 lisinopril 40 mg tablet 40 mg PO DAILY #90 tabs 04/14 bupropion HCl 300 mg 24 hr tablet, 300 mg PO QAM #60 t abs 09/04/24 extended release (Wellbutrin XL) levocetirizine 5 mg tablet (Xyzal) 5 mg PO DAILY #30 t abs 09/04/24 Allergies Allergy/AdvReac Type Severity Reaction Status Date / Time No Known Allergies Allergy Verified 09/04/24 08:56 Review of Systems General: Reports: 10 or more systems reviewed and unremarkable except in HPI and below PFSH ED PFSH: Medical History Moderate major depression Severe alcohol use disorder Rotator cuff tear arthropathy of right shoulder Arthritis of right acromioclavicular joint Osteoarthritis Hypertension Surgical History History of left knee surgery History of hernia repair History of vasectomy Family History Father Cancer prostate Grandmother Cancer Maternal-breast Other Hypertension Denies family history of Diabetes CAD (coronary artery disease) Clotting disorder Dementia Hyperlipidemia Psychiatric illness Chronic kidney disease (CKD) Anesthesia complication Bleeding disorder Lung disease Stroke Social History Smoking and tobacco/nicotine status: current every day tobacco/nicotine user smokeless tobacco Smokeless tobacco user: chewing tobacco Alcohol intake: former Substance/Drug Use: never Lives independently: Yes Marital status: Current occupational status: employed Current occupation: Construction Special marion needs: No Agree to transfusion: Yes Physical Exam Const: COMMON NORMALS: no acute distress, average body habitus, patient oriented x3, no limitations, healthy appearing, alert and well nourished HENMT: COMMON NORMALS: normocephalic, atraumatic, hearing grossly normal bilaterally, external ears normal, Normal external nose present, moist oral mucous membranes and oropharynx normal HEAD & SCALP: normocephalic and atraumatic NOSE: Normal external nose present EXTERNAL EAR: Yes external ears normal Eye: COMMON NORMALS: Equal, round and reactive pupils present, EOMs intact bilaterally, negative for conjunctivae normal (Bilateral conjunctivitis) and no scleral icterus CONJUNCTIVA: No conjunctivae normal (Bilateral conjun ctivitis) PUPIL: Yes Equal, round and reactive pupils present OTHER: Each eye was anesthetized with tetracaine drops, fluorescein dye was applied, each eye was examined under black light as well as both eyelids inverted. No obvious foreign body or defects was noted. Neck/C-Spine: COMMON NORMALS: no JVD Chest: COMMONS NORMALS: normal inspection of the chest and normal palpation of entire chest wall Resp: COMMON NORMALS: normal respiratory effort, No retractions, No use of accessory muscles and clear to auscultation bilaterally AUSCULTATION: clear to auscultation bilaterally Cardio: COMMON NORMALS: no JVD, regular rate, regular rhythm, S1 normal heart sound present, S2 normal heart sound present, No gallops present (Cardio), No clicks present (Cardio), No murmurs present (Cardio) and No rub (Cardio) RATE: regular rate RHYTHM: regular rhythm HEART SOUNDS: S1 normal heart sound present and S2 normal heart sound present Neuro: COMMON NORMALS: patient oriented x3 SENSORIUM/ORIENTATION: Yes alert Course Vital Signs: Vital signs: Vital Signs Temperature 98 F 10/17/24 04:37 Pulse Rate 72 10/17/24 04:37 Respiratory Rate 20 H 10/17/24 04:37 Blood Pressure 162/100 10/17/24 04:37 Pulse Oximetry 95 10/17/24 04:37 MDM - Eye Problem Medical Decision Making Each eye was anesthetized with tetracaine drops, fluorescein dye was applied, each eye was examined under black light as well as both eyelids inverted. No obvious foreign body or defects was noted. Patient be discharged home. Medical Records I reviewed the patient's medical records. Lab Data I reviewed the patient's lab results. No radiology studies performed this visit Discharge Plan Discharge Patient Disposition: Home Clinical Impression: Conjunctivitis Qualifiers: Conjunctivitis type: acute Acute conjunctivitis type: unspecified Laterality: bilateral Qualified Code(s): H10.33 - Unspecified acute conjunctivitis, bilateral Condition: Stable Prescriptions: No Action fluticasone propionate [Flonase Allergy Relief] 50 mcg/actuation spray,suspension 1 spray intranasal BID Qty: 16 0RF Rx Instructions: administer into each nostril bupropion HCl [Wellbutrin XL] 300 mg tablet extended release 24 hr 300 mg PO QAM Qty: 60 1RF levocetirizine [Xyzal] 5 mg tablet 5 mg PO DAILY Qty: 30 1RF celecoxib [Celebrex] 100 mg capsule 100 mg PO BID Qty: 180 1RF lisinopril 40 mg tablet 40 mg PO DAILY Qty: 90 1RF hydrochlorothiazide 25 mg tablet 25 mg PO QAM Qty: 90 1RF amlodipine [Norvasc] 5 mg tablet 5 mg PO .qnightly Qty: 90 1RF Discharge Orders: Discharge ED (Routine); Ordered 10/17/24 Ordered By: Ernesto Layne Referrals: Wilfredo Preston MD [Primary Care Provider] - 1 week Patient Instructions: Conjunctivitis (ED) Activity Restrictions/Additional Instructions: Your evaluation in the ER did not show any foreign body or corneal defect. Your eyes may just be irritated and this need time to resolve. There is no treatment other than time. If your pain does not get any better in the next 2 to 3 days or gets worse at any time. Please follow-up with your housekeeper manager for further evaluation and treatment. Thank you for choosing [facility] for your healthcare needs today. Please realize that you were seen in the emergency department and that we are providing you with an emergency medical screening exam and this may not be a complete and all exclusive of all testing and/or medical workup we may need to determine your element or severity of your illness. It is very important that you follow-up as instructed with your primary care provider or specialist for the additional evaluation and to discuss your medical treatment plan. You may return to the emergency department should you have concerns or if your condition changes or worsens in any way. Print Language: Tunisian Coding Level of Care Code ED Photography Professor for Essence Marin
[2024-10-17 05:06] VITALS: BP 143/79; PULSE 64; RESP 18; O2SAT 93
== END 2024-10-17 05:07 | disposition home or self-care (01) ==
PROVIDERS: Emergency Provider Emergency Medicine; PCP Family Medicine
DX: H10.33 Unspecified acute conjunctivitis, bilateral (principal); F17.220 Nicotine dependence, chewing tobacco, uncomplicated; I10 Essential (primary) hypertension
CPT/HCPCS: 99283

== ENCOUNTER 2025-05-11 05:52 | Emergency (ER) | payer BC, MEDICAID, SELFPAY ==
--- OUTSIDE RECORDS SUMMARY | 2016-07-19 10:20 | XMS_ITS | Continuity of Care Document ---
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 Phone Unavailable Unavailable Unavailable Allergies, Adverse Reactions, Alerts Substance Reaction Status Criticality No Known Allergies Active No Inform ation Medications Medication Instructions Dosage Effective Dates (start - stop) Status Comments LISINOPRIL (unknown strength) take 1 tablet by oral route every day Not Available - Active Procedures Procedure Date Comprehensive eye exam, new patient Determination of refractive state Advance Directives Directive Yes / No Effective Date File Name Resuscitation Not Answered N/A N/A Life Support Not Answered N/A N/A Intubation Not Answered N/A N/A Antibiotics Not Answered N/A N/A IV Fluid Support Not Answered N/A N/A Tube Feed Not Answered N/A N/A Other Directive N/A N/A WARNING:The information contained in this section is historical and is provided for information only and does not constitute a legal document or any assurance that the information is still accurate. Please verify the information with the stein of the legal document before using it for clinical purposes. Encounters Encounter Description Practice Location Reason(s) For Visit Diagnoses Date Provider Providers Copied on Encounter [facility], [address] [address], [place], [place], [id number], tel:[phone] Karlee Patient is here for a complete exam. (chief complaint) Disorder of refraction H52.7Presbyo chintan H52.4Encount er for examination of eyes and vision with abnormal findings Z01.01Pteryg ium of right eye [phone] No Information Family History Family Member Type Diagnosis Age At Onset Problem (finding) Family history of hyper tension Payers Payer name Insurance type Covered republican ID Authoriza tion(s) No Information Social History Type Description Quantity Date Captured Comments Alcohol Use Details No Caffeine Use Details coffee Tobacco Use Status Chews tobacco Smoking Status Smoker, current stat us unknown Non-Smoking Tobacco Use Details Chewing: No Details Available Chewing: No Details Available Sex Male Chief Complaint And Reason For Visit From encounter dated '07/19/2016 15:20'. Patient is here for a complete exam. (chief complaint) Reason For Referral Reason For Referral No Information Plan Of Treatment Date Type Action Status Patient Education Presbyopia: Care Instru ctions completed History Of Present Illness Encounter Date Complaint History Of Prese nt Illness No Information Functional Status Date Functional Assessmen t No Information Instructions Date Instruction Additional Infor mation - New glasses prescr iption was given today. 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 Recommend using artificial tears daily as needed, as well as sunglasses while outdoors. Related to Pterygium of right eye H11.001 - Explained in dar castillo diagnosis with patient. New glasses prescription given today. 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
[2025-05-11 05:56] VITALS: PULSE 69; RESP 18; TEMP 36.5; O2SAT 98; BMI 34.4
[2025-05-11 06:02] VITALS: BP 138/80; PULSE 71; O2SAT 95
--- NOTE | 2025-05-11 06:18 | ED_ITS ---
HPI - Dental/Oral General: Chief complaint: Dental/Oral Stated complaint: Swelling Under lower Lips Time Seen by Provider: 05/11/25 06:07 History of Present Illness: 55-year-old male presents emergency room swelling of his lower lip and chin. Swelling in his lip is making it difficult for him to swallow at times he has developed some tooth pain that he noted after the swelling it began. He is able to handle his own secretions. He states it is difficult to talk because the lip is swollen. No wheezing or stridor. No fevers sweats or chills. He is not on any anticoagulants. Associated symptoms: Denies fever(s) Related Data Previous Rx's ?Medication ?Instructions ?Recorded fluticasone propionate 50 1 spray intranasal BID #16 g devendra 04/09/24 mcg/actuation nasal spray,suspension (Flonase Allergy Relief) amlodipine 5 mg tablet (Norvasc) 5 mg PO .qnightly #90 tabs 02/04/25 bupropion HCl 300 mg 24 hr tablet, 300 mg PO QAM #90 t abs 02/04/25 extended release (Wellbutrin XL) celecoxib 100 mg capsule (Celebrex) 100 mg PO BID #180 caps 02/04/25 gabapentin 300 mg capsule 300 mg PO BID #180 caps 01/11 02/03 hydrochlorothiazide 25 mg tablet 25 mg PO QAM #90 tabs 02/04/25 levocetirizine 5 mg tablet (Xyzal) 5 mg PO DAILY #90 t abs 02/04/25 lisinopril 40 mg tablet 40 mg PO DAILY #90 tabs 01/11 02/03 sildenafil 25 mg tablet (Viagra) 25 mg PO DAILY PRN se xual activity 02/04/25 #30 tabs triamcinolone acetonide 0.1 % 1 applic topical BID PRN psoriasis 02/04/25 topical ointment 2 weeks #30 grams amoxicillin 875 mg-potassium 1 tab PO BID #14 tabs clavulanate 125 mg tablet methylprednisolone 4 mg tablets in See Rx Instructions PO .COMPLEX 05/11/25 a dose pack (Medrol (Clifford)) #21 ea Allergies Allergy/AdvReac Type Severity Reaction Status Date / Time No Known Allergies Allergy Verified 02/26/25 07:35 Review of Systems Const: Denies: fever(s) or chills Card: Denies: chest pain Resp: Denies: dyspnea GI: Denies: abdominal pain Musc: Denies: neck pain or back pain Skin/Breast: Denies: rash PFSH ED PFSH: Medical History Erectile dysfunction Moderate major depression Severe alcohol use disorder Rotator cuff tear arthropathy of right shoulder Arthritis of right acromioclavicular joint Osteoarthritis Hypertension Surgical History History of left knee surgery History of hernia repair History of vasectomy Family History Father Cancer prostate Grandmother Cancer Maternal-breast Other Hypertension Denies family history of Diabetes CAD (coronary artery disease) Clotting disorder Dementia Hyperlipidemia Psychiatric illness Chronic kidney disease (CKD) Anesthesia complication Bleeding disorder Lung disease Stroke Social History Smoking and tobacco/nicotine status: never used tobacco/nicotine Alcohol intake: former Substance/Drug Use: never Lives independently: Yes Marital status: Current occupational status: employed Current occupation: Construction Special marion needs: No Agree to transfusion: Yes Physical Exam Const: GENERAL APPEARANCE: cooperative ORIENTATION/CONSCIOUSNESS: Yes awake, Yes oriented to person, Yes oriented to place and Yes oriented to time HENMT: COMMON NORMALS: normocephalic, atraumatic and hearing grossly normal bilaterally HEAD & SCALP: normocephalic and atraumatic OTHER: Swelling of the lower lip and chin. There is no evidence of submandibular space swelling or induration or pain posterior pharyngeal wall is normal no swelling of the tongue and no erythema or swelling of the posterior pharyngeal wall or tonsillar pillars. Dentition is poor with multiple eroded teeth to the gumline. There is some mild swelling of the gumline at the midline on the mandible. No abscess identified no fluctuant areas. Neck/C-Spine: OTHER: No stridor no palpable lymphadenopathy Resp: COMMON NORMALS: normal respiratory effort, No retractions, No use of accessory muscles and clear to auscultation bilaterally AUSCULTATION: clear to auscultation bilaterally Cardio: COMMON NORMALS: regular rate, regular rhythm and No murmurs present (Cardio) RATE: regular rate RHYTHM: regular rhythm Extremity: COMMON NORMALS: normal to inspection, capillary refill normal, no clubbing, cyanosis or edema, no calf tenderness and no pedal edema Neuro: SENSORIUM/ORIENTATION: Yes oriented to person, Yes oriented to place and Yes oriented to time Skin: COMMON NORMALS: no rashes or lesions noted GENERAL SKIN EXAM: no rashes or lesions noted Course Vital Signs: Vital signs: Vital Signs Temperature 97.7 F 05/11/25 05:56 Pulse Rate 71 05/11/25 06:02 Respiratory Rate 18 05/11/25 05:56 Blood Pressure 138/80 05/11/25 06:02 Pulse Oximetry 95 05/11/25 06:02 Oxygen Delivery Me thod Room Air 05/11/25 05:56 MDM - Dental/Oral Medical Decision Making Dental infection with some swelling and lip. Is given dexamethasone and Toradol here will discharge home on Augmentin 875 twice daily for 7 days he has a dentist appointment tomorrow will also put him on Medrol Dosepak. If symptoms worsen or change or develops fever return. At this time he has no airway compromise he is able to handle secretions all of the swelling is at the lower lip and not in the posterior pharynx or in the submandibular space. Medical Records I reviewed the patient's medical records. Lab Data I reviewed the patient's lab results. All radiology interpretation(s) finalized by discharge Discharge Plan Discharge Patient Disposition: Home Clinical Impression: Dental infection Condition: Stable Prescriptions: New amoxicillin-pot clavulanate 875-125 mg tablet 1 tab PO BID Qty: 14 0RF methylprednisolone [Medrol (Clifford)] 4 mg tablets,dose pack See Rx Instructions .ROUTE .COMPLEX Qty: 21 0RF Rx Instructions: orally per package directions No Action fluticasone propionate [Flonase Allergy Relief] 50 mcg/actuation spray,suspension 1 spray intranasal BID Qty: 16 0RF Rx Instructions: administer into each nostril triamcinolone acetonide 0.1 % ointment 1 applic topical BID PRN (Reason: psoriasis) 14 Days Qty: 30 2RF amlodipine [Norvasc] 5 mg tablet 5 mg PO .qnightly Qty: 90 1RF bupropion HCl [Wellbutrin XL] 300 mg tablet extended release 24 hr 300 mg PO QAM Qty: 90 1RF celecoxib [Celebrex] 100 mg capsule 100 mg PO BID Qty: 180 1RF hydrochlorothiazide 25 mg tablet 25 mg PO QAM Qty: 90 1RF levocetirizine [Xyzal] 5 mg tablet 5 mg PO DAILY Qty: 90 1RF gabapentin 300 mg capsule 300 mg PO BID Qty: 180 3RF lisinopril 40 mg tablet 40 mg PO DAILY Qty: 90 1RF sildenafil [Viagra] 25 mg tablet 25 mg PO DAILY PRN (Reason: sexual activity) Qty: 30 3RF Rx Instructions: administer 30 minutes to 4 hours before activity Discharge Orders: Discharge ED (Routine); Ordered 05/11/25 Ordered By: Erich Davalos Referrals: Wilfredo Preston MD [Primary Care Provider, Family Practice] Discharge Diet: Soft Mechanical Discharge Activity: Resume usual activity Patient Instructions: Opioid Safety, Pain Management, Patient Portal & [facility] Instructions Activity Restrictions/Additional Instructions: Thank you for choosing [facility] for your healthcare needs today. It is very important that you follow up as instructed or that you return to the Emergency Department should you have concerns or if your condition changes or worsens in any way. Emergency department visits are focused on emergent conditions, in some cases you may require further evaluation on an outpatient basis. You are seen in the emergency room with some swelling in your lower lip and dental infection in the incisors of the jaw. On exam there was no swelling in the area underneath the jaw or enlarged lymph nodes around the neck. Recommend you start on oral antibiotics 1 pill twice a day for 7 days. We also gave you a shot of steroids and anti-inflammatory and recommend you start oral steroid pack tomorrow that will help with the swelling. Return if you develop a fever or worsening swelling. (Please note that included in your discharge packet is information concerning opioid safety and pain management. This information is given to all patients were discharged from the ER regardless of their discharge diagnosis or the medicines they usually take or are prescribed.) Print Language: Tajik Coding Level of Care Code ED Core Stripper for Essence Marin
[2025-05-11 06:56] VITALS: BP 119/71; PULSE 72; O2SAT 95
== END 2025-05-11 06:58 | disposition home or self-care (01) ==
PROVIDERS: Emergency Provider Family Medicine; PCP Family Medicine
DX: K04.7 Periapical abscess without sinus (principal); I10 Essential (primary) hypertension
CPT/HCPCS: 96372; 96374; 99284; J1100; J1885

== ENCOUNTER → 2025-06-28 15:28 | Outpatient (BNVA) | payer BC, MEDICAID, SELFPAY | PROVIDERS: PCP Family Medicine; Visit Provider Family Medicine | DX: Z13.6 Encounter for screening for cardiovascular disorders (principal) | CPT/HCPCS: 80053; 80061; 84439; 84443; 85025 ==